=== PATIENT | female | born 1945 | race Caucasian/White ===

== ENCOUNTER 2017-10-11 10:46 | Outpatient (CLI) | payer MEDICARE ==
--- NOTE | 2017-10-11 14:49 | RAD ---
TWO VIWS OF THE CHEST: DATE: 10/11/17. COMPARISON: None. HISTORY: Dyspnea. FINDINGS: There is no pneumothorax or pleural fluid and no focal consolidation or alveolar edema. Heart and m ediastinal contours are grossly unremarkable. Mild increased linear interstitial density noted. IMPRESSION: No acute findings. POS: [facility]
== END 2017-10-11 10:47 | disposition home or self-care (01) ==
LOC: RAD 10:46
PROVIDERS: ATTEND Internal Medicine Critical Care Medicine
DX: R06.00 Dyspnea, unspecified (principal)
CPT/HCPCS: 71020

== ENCOUNTER 2017-11-09 11:28 | Outpatient (CLI) | payer MEDICARE ==
[2017-11-09] MEDS ORDERED: Iopamidol 370 76% 100 ML VIAL ONE (13:12)
--- NOTE | 2017-11-09 14:19 | CT ---
EXAM: ABDOMEN CT WITH AND WITHOUT CONTRAST PELVIC CT WITH AND WITHOUT CONTRAST: History Asymptomatic microscopic hematuria. The patient has had a previous hysterectomy. COMPARISON: None. TECHNIQUE: An abdomen and pelvic CT was performed with and without IV contrast. Coronal reformatted images are submitted for interpretation. FINDINGS: ABDOMEN CT: Lung bases are clear. A small amount of pericardial fluid is noted. Heart size is normal. Descendi ng thoracic aorta and abdominal aorta have a normal caliber. No periaortic fat stranding. The liver, spleen, pancreas, and adrenal glands have appropriate enhancement. Gallbladder is unremarkable. No gastrohepatic, retrocrural, or periportal lymphadenopathy. No mesenteric mass, lymphadenopathy, free air, or free fluid. Limited evaluation f the alimentary canal due to the lack of oral contrast administration. No eviden ce of bowel obstruction. Ileocecal junction is normal. Normal-caliber appendix. Fecal material in a nondistended, nondilated colon. Appendix is not appreciated. No inflammation of the cecal apex. On the noncontrast sequence, there is no evidence of hydronephrosis, nephrolithiasis, or perinephric fat stranding. There is symmetric enhancement of the kidneys. Symmetric excretion into the intraren al collecting system. No evidence of hydronephrosis. 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 The ureters appear to join together at approximately the L4 level, bilaterally. The contrast-opacified ureters have a normal caliber. No hydroureter, p eriureteric fat stranding, or ureterolithiasis. There are a few scattered nonspecific left hemiabdom en lymph nodes, nonspecific. PELVIC CT: Surgically absent uterus. No pelvic mass, lymphadenopathy, free air, or free fluid. Contrast is not ed in the dependent portion of the urinary bladder. There are no lytic or blastic lesions in the osseous structures. IMPRESSION: 1. 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 Bilaterally, o evidence of obstructive uropathy. 2. Contrast in the dependent portion of the urinary bladder which is grossly unremarkable. If there is concern for bladder-based pathology, cystoscopy can be performed. POS: [facility]
== END 2017-11-09 11:29 | disposition home or self-care (01) ==
LOC: CT 11:28
PROVIDERS: ATTEND Urology
DX: R31.21 Asymptomatic microscopic hematuria (principal)
CPT/HCPCS: 74178

== ENCOUNTER 2017-11-24 08:00 | Outpatient (CLI) | payer MEDICARE | END 2017-11-24 08:01 | disposition home or self-care (01) | LOC: BICMAMMO 08:00 | PROVIDERS: ATTEND Family Medicine | DX: Z12.31 Encounter for screening mammogram for malignant neoplasm of breast (principal); Z80.3 Family history of malignant neoplasm of breast | CPT/HCPCS: 77063; G0202; 77067 ==

== ENCOUNTER 2018-03-08 11:04 | Outpatient (CLI) | payer MEDICARE ==
[2018-03-08 13:12] LABS: #Eosinphils 0.3 thou/uL (0.0-0.7); #Lymphocytes 1.7 thou/uL (1.20-3.40); #Monocytes 0.4 thou/uL (0.11-0.59); #Neutrophils 3.5 thou/uL (1.40-6.50); %Basophils 0.7 % (0.0-1.0); %Eosinophils 4.6 % (0.0-10.0); %Lymphocytes 28.1 % (21.0-51.0); %Monocytes 7.2 % (0.0-10.0); %Neutrophils 59.4 % (42.0-75.0); Hemoglobin 12.4 g/dL (12.0-16.0); Mean Corpuscular HGB CONC 33.3 g/dL (32.0-36.0); Mean Corpuscular Hemoglobin 31.2 pg (27.0-31.0); Mean Corpuscular Volume 93.8 fl (81.0-99.0); Mean Platelet Volume 7.2 fL (7.4-10.4); Platelet Count 230 thou/uL (130-400); RBC Distribution Width 11.6 % (11.5-14.5); Red Blood Cell (RBC) Count 3.97 mill/uL (4.20-5.40)
[2018-03-08 13:39] LABS: Anion Gap 13 mmol/L (10-20); BUN (Urea Nitrogen) 17 mg/dL (9.8-20.1); Calc. Creatinine Clearance 0 mL/min (70-130); Calcium 9.8 mg/dL (7.8-10.44); Carbon Dioxide 31 mmol/L (23-31); Chloride 101 mmol/L (98-107); Estimated GFR-MDRD 71; Glucose 85 mg/dL (80-115); Sodium 141 mmol/L (136-145)
--- NOTE | 2018-03-09 07:59 | EKG ---
Test Reason : Blood Pressure : / mmHG Vent. Rate : 055 BPM Atrial Rate : 055 BPM P-R Int : 202 ms QRS Dur : 092 ms QT Int : 420 ms P-R-T Axes : 070 041 044 degrees QTc Int : 401 ms Sinus bradycardia Septal infarct (cited on or before 13-DEC-2016)( Possibly) Abnormal ECG When compared with ECG of 13-DEC-2016 05:50, Questionable change in initial forces of Septal leads Confirmed by LEANA HAN ([id number]) on 03/09/2018 7:58:55 AM Referred By: ALICE Confirmed By:LEANA HAN
== END 2018-03-08 11:05 | disposition home or self-care (01) ==
LOC: LABBT 11:04
PROVIDERS: ATTEND Orthopaedic Surgery Hand Surgery
DX: Z01.812 Encounter for preprocedural laboratory examination (principal); M72.0 Palmar fascial fibromatosis [Dupuytren]; R94.31 Abnormal electrocardiogram [ECG] [EKG]; R00.1 Bradycardia, unspecified; I23.1 Atrial septal defect as current complication following acute myocardial infarction
CPT/HCPCS: 80048; 85025; 93005; 93010

== ENCOUNTER 2018-03-18 05:52 | Day surgery (SDC) | payer MEDICARE ==
[2018-03-08 11:29] VITALS: BMI 23.3
[2018-03-18] MEDS ORDERED: Fentanyl 100 MCG/2 ML VIAL ONE (06:09)
[2018-03-18] MEDS ORDERED: Ondansetron PF 4 MG/2 ML Vial ONE ×2 (06:11→17:28)
[2018-03-18] MEDS ORDERED: Bacitracin Zinc Ointment 30 gm TUBE ONE (06:44)
[2018-03-18] MEDS ORDERED: Bupivacaine PF 0.5% 30 ML VIAL ONE (06:44)
[2018-03-18] MEDS ORDERED: Clindamycin/D5W 600 mg/50 ml Premix Bag ONE (07:31)
[2018-03-18] MEDS ORDERED: Betamet Acet/Betamet Na Ph 30 MG/5 ML VIAL ONE (08:59)
[2018-03-18] MEDS ORDERED: Lidocaine 1% PF 5 ML VIAL ONE (17:28)
[2018-03-18] MEDS ORDERED: PHENYLEPHRINE-NS 100 MCG/ML 10 ML SYRINGE ONE (17:28)
[2018-03-18] MEDS ORDERED: PROPOFOL 200 MG/20 ML VIAL ONE (17:28)
[2018-03-18] MEDS ORDERED: ePHEDrine/0.9% NaCl/PF SYRINGE 50 mg/10 ml ONE (17:28)
[2018-03-18] MEDS ORDERED: Dexamethasone 20 MG/5 ML VIAL ONE (17:28)
[2018-03-18] MEDS ORDERED: Ketorolac Tromethamine 30 MG/ML VIAL ONE (17:28)
--- NOTE | 2018-03-19 19:58 | OP ---
DATE OF PROCEDURE: 03/18/2018 PREOPERATIVE DIAGNOSIS: Right palmar Dupuytren's cord with severe involvement of the central digit a nd small involvement of the ring and index finger. PROCEDURES PERFORMED: 1. Subtotal palmar fasciectomy. 2. Ulnar digital nerve long finger neuroplasty. 3. Radial digital nerve long finger neuroplasty. SPECIMEN SENT: Dupuytren's cord. FINDINGS: At the end of procedure, digital nerves grossly intact with no damage to the neurovascular structures to any of the digits. INDICATION: The patient with a longstanding loss of extension at the MP joint beginning to lose PIP joint, motion could not put palm flat. No pain. No numbness or tingling. TOURNIQUET TIME: 55 minutes. ANESTHESIA: General LMA technique by [place] Anesthesia augmented by a 20 mL 0.5% Marcaine block, 1 0 mL around the incision prior to surgery and 10 mL after wound was closed. DESCRIPTION OF PROCEDURE: After successful general LMA technique, the limb was prepped and draped. I then made a zigzag incision beginning 5 mm distal to the PIP joint where the cord had and I c oursed it to a point about 5 mm distal to the transverse carpal ligament distal edge. The injection was given. Timeout was finished. Limb exsanguinated and tourniquet inflated to 250 mmHg pressure. A zigzag incision was carried down through skin and subcutaneous tissue. A Niobrara blade was used to separate the skin areas, which was the primary involvement of the ring and index finger as well as th e central portion of the cord with the MP joint, it was very thick and tight. Once we had dissected the skin from the cord, we then began with a neuroplasty, began in the proximal aspect of the wound, goes all the way out to the PIP joint and beyond on the radial side. We did a complete neuroplasty a nd the magnification both radial and ulnar digital nerve, and I spared the nerve as well as neurovasc ular bundle. We then elevated the distal end of the cord from its attachment to both skin, tendon sh eath, and A3 jorge. Then, we followed back all fat maintaining all fat to reach the neal sverse carpal ligament where we incised it without neurovascular damage. We placed 5 mL of Celestone to wound, deflated tourniquet, maintain hemostasis, and closed the wound with interrupted 4-0 nylon in a mattress pattern. Bulky dressing was applied and the patient left the operating room without ev idence of anesthetic or operative complication.
== END 2018-03-18 11:45 | disposition home or self-care (01) ==
LOC: SDC 05:52
PROVIDERS: ATTEND Orthopaedic Surgery Hand Surgery
PROC: 0JNJ0ZZ Release Right Hand Subcutaneous Tissue and Fascia, Open Approach (ICD-10-PCS; principal; 2018-03-18)
PROC: 01N60ZZ Release Radial Nerve, Open Approach (ICD-10-PCS; 2018-03-18)
PROC: 01N40ZZ Release Ulnar Nerve, Open Approach (ICD-10-PCS; 2018-03-18)
DX: M72.0 Palmar fascial fibromatosis [Dupuytren] (principal); J45.909 Unspecified asthma, uncomplicated; I10 Essential (primary) hypertension; Z79.890 Hormone replacement therapy; Z79.899 Other long term (current) drug therapy; Z88.0 Allergy status to penicillin; Z88.1 Allergy status to other antibiotic agents; Z88.2 Allergy status to sulfonamides; Z88.7 Allergy status to serum and vaccine
CPT/HCPCS: 88304; 88331; J0131; J0702; J1100; J1885; J2001; J2405; J2704; J3010; J3490; S0020

== ENCOUNTER 2019-04-03 10:17 | Outpatient (CLI) | payer MEDICARE ==
--- NOTE | 2019-04-03 11:09 | MMO ---
Bilateral MAMMO Bilat Screen [facility]. CLINICAL HISTORY: Patient is 73 years old and is seen for screening. The patient has the following family history of breast cancer: mother, at age 82. The patient has no personal history of cancer. VIEWS: The views performed were: bilateral craniocaudal with tomosynthesis and bilateral mediolateral oblique with tomosynthesis. FILMS COMPARED: The present examination has been compared to prior imaging studies performed at [facility] on 11/24/2017, and at [facility] on 09/25/2014, 10/10/2014, 09/27/2015 and 11/19/2016. MAMMOGRAM FINDINGS: There are scattered fibroglandular densities. Finding 1: There is a stable area of architectural distortion seen in the right breast. This is presumably post-operative/post-biopsy change, or perhaps related to prior trauma. This is stable with respect to multiple prior exams. Finding 2: There are stable benign appearing calcifications seen in both breasts. There are no suspicious masses, suspicious calcifications, or new areas of architectural distortion. IMPRESSION: THERE IS NO MAMMOGRAPHIC EVIDENCE OF MALIGNANCY. A ROUTINE FOLLOW-UP MAMMOGRAM IN 1 YEAR IS RECOMMENDED. THE RESULTS OF THIS EXAM WERE SENT TO THE PATIENT. ACR BI-RADS Category 2 - Benign finding MAMMOGRAPHY NOTE: 1. A negative mammogram report should not delay a biopsy if a dominant of clinically suspicious mass is present. 2. Approximately 10% to 15% of breast cancers are not detected by mammography. 3. Adenosis and dense breasts may obscure an underlying neoplasm.
== END 2019-04-03 10:18 | disposition home or self-care (01) ==
LOC: BICMAMMO 10:17
PROVIDERS: ATTEND Family Medicine
DX: Z12.31 Encounter for screening mammogram for malignant neoplasm of breast (principal); Z80.3 Family history of malignant neoplasm of breast
CPT/HCPCS: 77063; 77067

== ENCOUNTER 2020-11-05 15:05 | Outpatient (CLI) | payer MEDICARE ==
--- NOTE | 2020-11-05 15:47 | MMO ---
Bilateral MAMMO Bilat Screen [facility]. CLINICAL HISTORY: Patient is 75 years old and is seen for screening. The patient has the following family history of breast cancer: mother, at age 82, malignant (generic). The patient has no personal history of cancer. The patient has a history of Ultrasound Guided Core Biopsy more than 10 years ago - benign. VIEWS: The views performed were: bilateral craniocaudal with tomosynthesis and bilateral mediolateral oblique with tomosynthesis. FILMS COMPARED: The present examination has been compared to prior imaging studies performed at [facility] on 11/24/2017 and 04/03/2019, and at [facility] on 09/27/2015 and 11/19/2016. This study has been interpreted with the assistance of computer-aided detection. MAMMOGRAM FINDINGS: There are scattered fibroglandular densities. There are stable benign appearing calcifications seen in both breasts. There are also vascular calcifications. There are no suspicious masses, suspicious calcifications, or new areas of architectural distortion. IMPRESSION: THERE IS NO MAMMOGRAPHIC EVIDENCE OF MALIGNANCY. A ROUTINE FOLLOW-UP MAMMOGRAM IN 1 YEAR IS RECOMMENDED. THE RESULTS OF THIS EXAM WERE SENT TO THE PATIENT. ACR BI-RADS Category 2 - Benign finding MAMMOGRAPHY NOTE: 1. A negative mammogram report should not delay a biopsy if a dominant of clinically suspicious mass is present. 2. Approximately 10% to 15% of breast cancers are not detected by mammography. 3. Adenosis and dense breasts may obscure an underlying neoplasm. Reported by: JAIDA RIVERA MD Electonically Signed: [id number]
--- NOTE | 2020-11-05 16:46 | BD ---
Exam: DEXA Bone Density 11/05/20 HISTORY: Postmenopausal. 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 Ten year fracture risk: Major osteoporotic fracture: 9%. Hip fracture: 1.4%. These fracture probabilities are calculated for an untreated patient. POS: [facility]
== END 2020-11-05 15:06 | disposition home or self-care (01) ==
LOC: BICMAMMO 15:05
PROVIDERS: ATTEND Family Medicine
DX: Z12.31 Encounter for screening mammogram for malignant neoplasm of breast (principal); Z13.820 Encounter for screening for osteoporosis; N95.9 Unspecified menopausal and perimenopausal disorder; Z80.3 Family history of malignant neoplasm of breast; Z91.89 Other specified personal risk factors, not elsewhere classified; M85.89 Other specified disorders of bone density and structure, multiple sites
CPT/HCPCS: 77063; 77067; 77080